=== PATIENT | male | born 1985 | race Caucasian/White ===

== ENCOUNTER 2022-12-21 08:24 | Day surgery (SDC) | payer BC, SELFPAY ==
[2022-12-19 16:06] LABS: Absolute Lymphocytes (CBC) 2.2 K/uL (0.7-4.9); Hematocrit 44.6 % (39.6-49.0); Lymphocytes % 31.3 % (15.3-44.8); MCV 92.5 fL (80-100); MPV 7.2 fL (7.6-11.3); Platelets 265 thou/uL (152-406); RBC Red Blood Cell Count 4.82 M/uL (4.33-5.43)
[2022-12-19 16:08] LABS: Protime INR 1.03
[2022-12-19 18:48] LABS: Potassium 3.9 mEq/L (3.5-5.1)
--- NOTE | 2022-12-19 19:32 | RAD REPORT ---
EXAM DESCRIPTION: RAD - Chest Pa And Lat (2 Views) - 12/19/2022 4:05 pm CLINICAL HISTORY: pre op pending biceps repair. Hypertension COMPARISON: No comparisons TECHNIQUE: PA and lateral views of the chest were obtained. FINDINGS: The lungs are clear. Heart size is normal and central vasculature is within normal limits. Probable septal defect occlusion device. No pleural effusion or pneumothorax seen. No acute bony fin ding noted. IMPRESSION: No acute cardiopulmonary process.
--- NOTE | 2022-12-20 09:47 | EKG ---
Test Date: 2022-12-19 Test Time: 15:40:35 Doctor Podiatric Medicine: TIMO MEASUREMENT RESULTS: Intervals: Rate: 67 AL: 162 QRSD: 94 QT: 362 QTc: 382 [place]: P: 46 AL: 162 QRS: 71 T: 72 INTERPRETIVE STATEMENTS: Normal sinus rhythm Normal ECG Compared to ECG 12/27/2016 23:15:36 No significant changes Electronically Signed On 12-20-22 09:45:51 CDT by Tar Lu
[2022-12-21] MEDS ORDERED: Ringers Lactate 1,000 ML IV ONE ×2 (08:52→13:44)
[2022-12-21] MEDS ORDERED: CEFAZOLIN SODIUM 1 GM/VIAL ONE (08:52)
[2022-12-21] MEDS ORDERED: BUPIVACAINE 0.25% PF 10 ML VIAL ONE (10:27)
[2022-12-21] MEDS ORDERED: BUPIVACAINE 0.5% PF 10 ML VIAL ONE (10:27)
[2022-12-21] MEDS ORDERED: propofoL 200 MG/20 ML VIAL IV ONE (10:31)
[2022-12-21] MEDS ORDERED: FENTANYL CITR 100 MCG/2 ML ONE ×2 (10:31→11:27)
[2022-12-21] MEDS ORDERED: dexAMETHasone 10 MG/ML VIAL ONE (10:31)
[2022-12-21] MEDS ORDERED: LIDOCAINE 2% MPF 5 ML VIAL ONE (10:32)
[2022-12-21] MEDS ORDERED: MIDAZOLAM HCL 2 MG/2 ML INJ ONE (10:32)
[2022-12-21] MEDS ORDERED: KETOROLAC 30 MG/ML INJ ONE (10:32)
[2022-12-21] MEDS ORDERED: ONDANSETRON 4 MG/2 ML VIAL ONE (10:32)
--- NOTE | 2022-12-21 12:50 | P.BOP ---
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
[2022-12-21] MEDS: HYDROMORPHONE HCL 1 MG/ML INJ ONE ×4 (12:59→13:17)
--- NOTE | 2022-12-21 13:18 | RAD REPORT ---
EXAM DESCRIPTION: RAD - Fluoroscopy <1 Hour - 12/21/2022 12:32 pm CLINICAL HISTORY: Device placement central venous catheter placement FINDINGS: Eleven fluoroscopic spot images obtained Fluoroscopy time 0.2 minutes Localization performed for a biceps tendon repair. Surgery performed by Dr. Simon
[2022-12-21] MEDS: FENTANYL CITR 100 MCG/2 ML ONE ×2 (13:27→13:40)
--- NOTE | 2022-12-21 13:49 | RAD REPORT ---
EXAM DESCRIPTION: RAD - Elbow Right 2 View - 12/21/2022 1:31 pm CLINICAL HISTORY: Elbow surgery FINDINGS: Postoperative changes of a biceps tendon repair No fracture or dislocation
[2022-12-21] MEDS ORDERED: HYDROMORPHONE HCL 1 MG/ML INJ IV ONE (14:15)
[2022-12-21] MEDS ORDERED: HYDROCODONE/APAP 7.5/325 MG TAB ONE (14:40)
[2022-12-21] MEDS ORDERED: IBUPROFEN 400 MG TAB ONE (14:41)
[2022-12-21] MEDS ORDERED: HYDROMORPHONE HCL 2 MG/ML inj ONE (14:45)
[2022-12-21 15:26] VITALS: O2SAT 98
[2022-12-21 15:27] VITALS: BP 130/75; TEMP 97
--- NOTE | 2022-12-27 08:17 | P.OP ---
Preoperative diagnosis: right distal biceps rupture Postoperative diagnosis: same Primary procedure: right distal biceps repair Anesthesia: general Estimated blood loss: 20 cc Specimen: none Findings: see dictation Operative Technique: Indication For Procedure: Jose is a 37-year-old male, who presented to my clinic after sustaining an injury to his right upper extremity. He felt a pop and had MRI and physical exam findings were consistent with right distal biceps tendon rupture. I discussed the patient at length risks and benefits associated with operative and nonoperative treatment. He expressed understanding and elected to proceed with operative treatment. Description Of Procedure: After informed consent was obtained, the patient was identified in preop holding area and the right hip x-ray was marked. The patient was then brought back to the operating room, transferred to the operating table in a supine fashion, placed under general LMA anesthesia. The right upper extremity was then prepped and draped in the usual sterile fashion. A time-out was initiated. The correct patient and procedure confirmed and identified. The patient did receive his preoperative pr ophylactic antibiotics. Fluoroscopy was then used to locate the bicipital tendon tuberosity and approximately a 6 cm curvilinear incision was made and centered over the antecubital fossa and radial tuberosity. Dissection was then taken down to the fascia. Care was taken to protect the lateral antebrachial cutaneous nerve at all times. Fascia was then opened using Metzenbaum and seroma was encountered within the distal arm and antecubital fossa. The biceps muscle belly was then milked and distal stump of the biceps tendon was identified. It was brought out through the incision using Allis clamps. There was significant fraying at the distal tip of the tendon as well as bulbous in nature. Any unhealthy-appearing tissue was then debrided off the distal biceps tendon stump and it was measured to fit approximately a 7 mm tunnel. It was whipstitched using a FiberLoop the length last 2.5 for about 3 cm distal tendon and marked. Next, the patient was taken to the dissection toward the bicipital tuberosity on the proximal radius that have form of supination at all times to protect the PIN nerve that lie proximally to bicipital tuberosity was noted on the proximal radius and a guide pin was placed in bicortical fashion followed by an 7.5 mm reamer in unicortical fashion. The reamer and guide pin were then removed. The biceps tendon button was placed on the tip, threaded through the suture and then whipstitched to the tendon. The button was then placed through the cortex and flipped and the tendon was docked into the 7.5 mm tunnel. There was overall docking of the tendon at approximately 70 degrees of elbow flexion. A free needle was then used to tiethe sutures to the tendon to lock the button into place and then a 7 x 10 mm bio-tenodesis screw was placed and there was good overall fit. The wound was then irrigated thoroughly with normal saline. Subcutaneous tissue was approximated using a 2-0 Vicryl. Skin was approximated using a 4-0 Monocryl. Sterile dressings were applied. Posterior splint was placed and the patient was awakened, transferred to PACU in stable condition. Postoperative Plan: The patient will be nonweightbearing in his right upper extremity. He will follow up in 1 week for wound check and placement of hinged elbow brace. Complications: None Implants: Arthrex distal biceps button, 7x10 mm interference screw Fluids & blood products: per anesthesia record Transferred to: Recovery Room Condition: Good
== END 2022-12-21 15:15 | disposition home or self-care (01) ==
LOC: OR 08:24
PROVIDERS: ATTEND Orthopaedic Surgery Sports Medicine
PROC: 0RHJ04Z Insertion of Internal Fixation Device into Right Shoulder Joint, Open Approach (ICD-10-PCS; 2022-12-21)
PROC: 0LS30ZZ Reposition Right Upper Arm Tendon, Open Approach (ICD-10-PCS; principal; 2022-12-21 10:15)
DX: S46.211A Strain of muscle, fascia and tendon of other parts of biceps, right arm, initial encounter (principal); S59.901A Unspecified injury of right elbow, initial encounter; Z86.73 Personal history of transient ischemic attack (TIA), and cerebral infarction without residual deficits; R53.1 Weakness; M25.521 Pain in right elbow
CPT/HCPCS: 93005; 85025; 80048; 36415; 85610; 85730; 71046; 76000; 73070; 24342; J2704; J2001; J2250; J1170 ×3; J3010 ×3; J1100; J2405; J7120 ×2; J0690